=== PATIENT | male | born 1980 | race Caucasian/White ===

== ENCOUNTER 2022-03-29 00:28 | Inpatient (IN) | payer BC, MEDICARE ==
[~2022-03-29] VITALS: Ht 170.2 cm; Wt 75.0 kg
[2022-03-29] MEDS ORDERED: NS 1,000 ML IV ONE (01:05)
[2022-03-29] MEDS ORDERED: DICYCLOMINE 10 MG CAP PO ONE (01:05)
[2022-03-29 01:45] LABS: BASO % 0.3 % (0.0-1.0); EOS % 0.3 % (0.0-3.0); HEMATOCRIT 40.2 % (42.0-52.0); HEMOGLOBIN 14.2 g/dl (13.5-17.5); LYMPH # 0.7 10^3/uL (1.5-5.0); LYMPH % 6.6 % (24.0-44.0); MEAN CORPUSCULAR HGB CONC 35.3 g/dl (32.0-36.5); MEAN CORPUSCULAR VOLUME 87.8 fl (80.0-96.0); MONO # 0.7 10^3/uL (0.0-0.8); MONO % 6.3 % (2.0-8.0); NEUTROPHILS # 9.5 10^3/uL (1.5-8.5); NEUTROPHILS % 86.1 % (36.0-66.0); PLATELET COUNT, AUTOMATED 182 10^3/uL (150-450); RED BLOOD COUNT 4.58 10^6/uL (4.30-6.10)
[2022-03-29 02:09] LABS: ALBUMIN 3.9 GM/DL (3.2-5.2); ALT/SGPT 78 U/L (12-78); BILIRUBIN,DIRECT 0.2 MG/DL (0.0-0.2); BLOOD UREA NITROGEN 22 MG/DL (7-18); CALCIUM LEVEL 9.3 MG/DL (8.5-10.1); CARBON DIOXIDE LEVEL 23 MEQ/L (21-32); CHLORIDE LEVEL 106 MEQ/L (98-107); CREATININE FOR GFR 1.25 MG/DL (0.70-1.30); GLOMERULAR FILTRATION RATE > 60.0 (>60); GLUCOSE, FASTING 170 MG/DL (70-100); LIPASE 142 U/L (73-393); POTASSIUM SERUM 4.2 MEQ/L (3.5-5.1); SODIUM LEVEL 139 MEQ/L (136-145); TOTAL PROTEIN 6.7 GM/DL (6.4-8.2)
[2022-03-29] MEDS ORDERED: ISOVUE-370 76% 100ML VIAL As Ordered ONE (02:10)
[2022-03-29] MEDS ORDERED: KETOROLAC 30 MG/ML 1ML VIAL IV ONE (02:35)
[2022-03-29] MEDS ORDERED: KETOROLAC 30 MG/ML 1ML VIAL As Ordered ONE (02:55)
[2022-03-29] MEDS: NS 1,000 ML IV SCH ×3 (03:03→14:39)
[2022-03-29] MEDS ORDERED: MORPHINE 2 MG/ML 1ML VIAL IV PRN (03:45)
[2022-03-29] MEDS ORDERED: ONDANSETRON 4MG/2ML VIAL IV PRN (03:45)
[2022-03-29] MEDS ORDERED: FISH1000 PO (03:53)
[2022-03-29] MEDS ORDERED: VITMTA PO (03:53)
[2022-03-29] MEDS ORDERED: VITA500T10 PO (03:53)
[2022-03-29] MEDS ORDERED: HOME MED LIST COMPLETE! XX SCH (03:55)
[2022-03-29 04:58] LABS: RSV AMPLIFICATION NEGATIVE (NEGATIVE)
[2022-03-29] MEDS ORDERED: MORPHINE 4 MG/ML 1ML VIAL/SYRINGE IV ONE (08:30)
[2022-03-29 13:50] VITALS: BP 132/80
[2022-03-29] MEDS: CHLORASEPTIC SPRAY MT PRN ×3 (15:48→20:22)
[2022-03-29 20:00] VITALS: BP 138/82
[2022-03-29] MEDS: KETOROLAC 30 MG/ML 1ML VIAL IV PRN (20:21)
[2022-03-30] MEDS ORDERED: UNRESOLVED CLARIFICATION ENTRY XX SCH (00:01)
[2022-03-30] MEDS: NS 1,000 ML IV SCH ×3 (01:06→16:10)
[2022-03-30] MEDS: CHLORASEPTIC SPRAY MT PRN ×2 (01:06→06:10)
[2022-03-30 05:20] VITALS: BP 140/82
[2022-03-30 05:55] LABS: HEMATOCRIT 40.6 % (42.0-52.0); HEMOGLOBIN 13.9 g/dl (13.5-17.5); MEAN CORPUSCULAR HEMOGLOBIN 31.2 pg (27.0-33.0); MEAN CORPUSCULAR HGB CONC 34.2 g/dl (32.0-36.5); PLATELET COUNT, AUTOMATED 158 10^3/uL (150-450); RED BLOOD COUNT 4.46 10^6/uL (4.30-6.10)
[2022-03-30] MEDS: KETOROLAC 30 MG/ML 1ML VIAL IV PRN ×3 (06:11→18:17)
[2022-03-30 06:15] LABS: BLOOD UREA NITROGEN 19 MG/DL (7-18); CALCIUM LEVEL 7.9 MG/DL (8.5-10.1); CARBON DIOXIDE LEVEL 26 MEQ/L (21-32); CHLORIDE LEVEL 112 MEQ/L (98-107); CREATININE FOR GFR 1.06 MG/DL (0.70-1.30); GLOMERULAR FILTRATION RATE > 60.0 (>60); GLUCOSE, FASTING 99 MG/DL (70-100); POTASSIUM SERUM 4.1 MEQ/L (3.5-5.1); SODIUM LEVEL 142 MEQ/L (136-145)
[2022-03-30] MEDS: MOM 30ML SUSPENSION UDC PO SCH ×2 (08:23→20:29)
[2022-03-30 14:00] VITALS: BP 130/70
[2022-03-30 22:00] VITALS: BP 127/73
[2022-03-31] MEDS: NS 1,000 ML IV SCH ×2 (00:33→08:05)
[2022-03-31] MEDS: KETOROLAC 30 MG/ML 1ML VIAL IV PRN ×2 (00:35→08:06)
[2022-03-31] MEDS ORDERED: diphenhydrAMINE 50MG/ML VIAL (J1200) IV ONE (02:00)
[2022-03-31] MEDS ORDERED: PROCHLORPERAZINE 10MG/2ML VIAL (J0780 PER 1) IV ONE (02:30)
[2022-03-31 06:00] VITALS: BP 134/81
[2022-03-31 06:57] LABS: HEMOGLOBIN 13.3 g/dl (13.5-17.5); MEAN CORPUSCULAR HEMOGLOBIN 30.9 pg (27.0-33.0); MEAN CORPUSCULAR HGB CONC 34.1 g/dl (32.0-36.5); MEAN CORPUSCULAR VOLUME 90.5 fl (80.0-96.0); PLATELET COUNT, AUTOMATED 153 10^3/uL (150-450); RED BLOOD COUNT 4.31 10^6/uL (4.30-6.10); WHITE BLOOD COUNT 4.6 10^3/uL (4.0-10.0)
[2022-03-31 07:20] LABS: BLOOD UREA NITROGEN 13 MG/DL (7-18); CALCIUM LEVEL 8.5 MG/DL (8.5-10.1); CARBON DIOXIDE LEVEL 27 MEQ/L (21-32); CHLORIDE LEVEL 112 MEQ/L (98-107); CREATININE FOR GFR 0.95 MG/DL (0.70-1.30); GLOMERULAR FILTRATION RATE > 60.0 (>60); GLUCOSE, FASTING 95 MG/DL (70-100); POTASSIUM SERUM 3.9 MEQ/L (3.5-5.1); SODIUM LEVEL 145 MEQ/L (136-145)
[2022-03-31] MEDS: MOM 30ML SUSPENSION UDC PO SCH (08:05)
[2022-03-31] MEDS ORDERED: SUMAtriptan SUCCINATE 25 MG TAB PO PRN (08:20)
[2022-03-31] MEDS ORDERED: PERCOCET 5MG/325MG TAB PO PRN (08:20)
[2022-03-31] MEDS ORDERED: ACETAMINOPHEN TAB 650MG DOSE (2X325MG) PO PRN (08:20)
[2022-03-31] MEDS ORDERED: traMADol 50 MG TAB PO PRN (08:20)
[2022-03-31] MEDS ORDERED: COLA100C5 PO (12:26)
== END 2022-03-31 13:57 | disposition home or self-care (01) | DRG 247 ==
LOC: EDBD 00:28 → M ED 00:28 → M ED INP 03:31 → ENRESERV 10:57 → M MSPAV 13:34
PROVIDERS: ADMIT Family Medicine; ATTEND Internal Medicine
DX: K56.609 Unspecified intestinal obstruction, unspecified as to partial versus complete obstruction (principal); E87.2 Acidosis; K59.00 Constipation, unspecified; Z79.899 Other long term (current) drug therapy

== ENCOUNTER 2023-11-29 20:38 | Emergency (ER) | payer BC ==
[~2023-11-29] VITALS: Ht 170.2 cm; Wt 72.7 kg
[~2023-11-29 20:38] MED LIST: COLA100C5 PO; FISH1000 PO; VITA500T10 PO; VITMTA PO
[2023-11-29 21:28] LABS: BASO % 0.2 % (0.0-1.0); EOS # 0.1 10^3/uL (0.0-0.5); EOS % 0.5 % (0.0-3.0); HEMATOCRIT 49.2 % (42.0-52.0); HEMOGLOBIN 17.7 g/dl (13.5-17.5); LYMPH # 0.9 10^3/uL (1.5-5.0); LYMPH % 8.7 % (24.0-44.0); MEAN CORPUSCULAR HEMOGLOBIN 31.1 pg (27.0-33.0); MEAN CORPUSCULAR VOLUME 86.3 fl (80.0-96.0); MONO # 0.3 10^3/uL (0.0-0.8); MONO % 2.9 % (2.0-8.0); NEUTROPHILS # 9.1 10^3/uL (1.5-8.5); NEUTROPHILS % 87.5 % (36.0-66.0); PLATELET COUNT, AUTOMATED 197 10^3/uL (150-450); WHITE BLOOD COUNT 10.3 10^3/uL (4.0-10.0)
[2023-11-29] MEDS ORDERED: LR 1,000 ML IV ONE (21:30)
[2023-11-29] MEDS ORDERED: MORPHINE 4 MG/ML 1ML VIAL IV ONE (21:30)
[2023-11-29] MEDS ORDERED: PROMETHAZINE 25MG/ML 1ML VIAL IM ONE (21:30)
[2023-11-29 21:53] VITALS: TEMP 97.6
[2023-11-29 22:02] LABS: LIPASE 311 U/L (12-53)
[2023-11-29 22:03] LABS: C REACTIVE PROTEIN QUANTITATIV < 0.40 MG/DL (<1.0)
[2023-11-29 22:04] LABS: ALBUMIN 4.4 G/DL (3.2-5.2); ALKALINE PHOSPHATASE 79 U/L (46-116); ALT/SGPT 49 U/L (7.0-40); AST/SGOT 26 U/L (<34); BILIRUBIN,DIRECT 0.4 MG/DL (<0.4); BILIRUBIN,TOTAL 1.3 MG/DL (0.3-1.2); BLOOD UREA NITROGEN 25 MG/DL (9-23); CALCIUM LEVEL 8.7 MG/DL (8.5-10.1); CARBON DIOXIDE LEVEL 24 MMOL/L (20-31); CHLORIDE LEVEL 101 MMOL/L (98-107); CREATININE FOR GFR 1.09 MG/DL (0.70-1.30); GLOMERULAR FILTRATION RATE > 60.0 (>60); GLUCOSE, FASTING 141 MG/DL (60-100); MAGNESIUM LEVEL 1.5 MG/DL (1.8-2.4); POTASSIUM SERUM 3.8 MMOL/L (3.5-5.1); SODIUM LEVEL 137 MMOL/L (136-145); TOTAL PROTEIN 7.2 G/DL (5.7-8.2)
[2023-11-29] MEDS ORDERED: MAG SULF 1GM/100ML (MAG RUN) 1 GM in IV 1 EA IV ONE (22:25)
[2023-11-29] MEDS ORDERED: MIRALAX *UNIT DOSE* 17GM PACKET PO PRN (22:25)
[2023-11-29] MEDS ORDERED: KETOROLAC 30 MG/ML 1ML VIAL IV ONE (22:40)
[2023-11-29] MEDS ORDERED: METOCLOPRAMIDE INJ 10MG/2ML VIAL IV ONE (22:45)
[2023-11-29] MEDS ORDERED: SENN1TAB96 PO (23:59)
[2023-11-29] MEDS ORDERED: ONDA4TAB6 PO (23:59)
[2023-11-30 00:23] VITALS: BP 103/55; O2SAT 98
== END 2023-11-30 00:25 | disposition home or self-care (01) ==
LOC: M ED 20:38
DX: K58.9 Irritable bowel syndrome, unspecified (principal); Z79.83 Long term (current) use of bisphosphonates; Z79.899 Other long term (current) drug therapy
CPT/HCPCS: 74176; 80048; 80076; 83605; 83690; 83735; 85025; 86140; 96365; 96366; 96372; 96375; 99284; J1885; J2550; J2765; J3475